=== PATIENT | male | born 1940 | race Caucasian/White ===

== ENCOUNTER 2020-02-12 10:07 | Observation (INO) ==
[~2020-02-12 10:07] MED LIST: *HR* Propofol 200 MG/20 ML VIAL IVP ONE; Lidocaine -MPF 2% 2 ML VIAL ONE
[2020-02-12] MEDS ORDERED: Ringers Solution, Lactated 1,000 ML IVC SCH (10:45)
[2020-02-12] MEDS ORDERED: 0.9 % Sodium Chloride 1,000 ML IVC SCH (13:12)
[2020-02-12] MEDS ORDERED: Ondansetron 4 MG/2 ML VIAL IVP PRN (13:12)
[2020-02-12] MEDS ORDERED: *HR* Metoprolol 5 MG/5 ML VIAL IVP PRN (13:12)
[2020-02-12] MEDS ORDERED: Naloxone 0.4 MG/ML INJ IVP PRN (13:12)
[2020-02-12 13:49] LABS: INR 1.1
[2020-02-13] MEDS ORDERED: Ondansetron 4 MG/2 ML VIAL ONE (08:40)
[2020-02-13] MEDS ORDERED: *HR* Propofol 200 MG/20 ML VIAL IVP ONE (08:40)
[2020-02-13] MEDS ORDERED: Bupivacaine/EPI 1:200k 0.5%PF 10 ML VIAL ONE (08:40)
[2020-02-13] MEDS ORDERED: Lidocaine 1% 20 ML MDV ONE (08:40)
[2020-02-13] MEDS ORDERED: Dexamethasone 4 MG/ML VIAL ONE (08:40)
[2020-02-13] MEDS ORDERED: *HR* Heparin 5,000 UNIT/ML VIAL ONE (08:41)
[2020-02-13] MEDS ORDERED: *HR* FentaNYL (PF) 100 MCG/2 ML VIAL ONE (08:42)
[2020-02-13] MEDS ORDERED: Lidocaine HCL 4 ML Topical Solution (Laryng-O-Jet Kit Sterile Pak) TP ONE (08:43)
[2020-02-13] MEDS ORDERED: FLUoxetine 20 MG CAPSULE PO SCH (09:00)
[2020-02-13] MEDS ORDERED: *HR* HYDROmorphone PF 0.5 MG/0.5 ML SYRINGE IVP PRN ×2 (09:39→10:28)
[2020-02-13] MEDS ORDERED: Neostigmine Methylsulfate 3 MG/3 ML SYRINGE ONE (09:41)
[2020-02-13] MEDS ORDERED: *HR* PHENYLEPHRINE 1,000 MCG/10 ML SYRINGE IVP ONE (09:41)
[2020-02-13] MEDS ORDERED: Naloxone 0.4 MG/ML INJ IVP PRN (10:28)
[2020-02-13] MEDS ORDERED: 0.9 % Sodium Chloride 1,000 ML IVC SCH (10:28)
[2020-02-13] MEDS ORDERED: Ondansetron 4 MG/2 ML VIAL IVP PRN (10:28)
[2020-02-13] MEDS ORDERED: *HR* Metoprolol 5 MG/5 ML VIAL IVP PRN (10:28)
[2020-02-13 14:31] VITALS: BP 118/70
[2020-02-14] MEDS ORDERED: FLUoxetine 20 MG CAPSULE PO SCH (09:00)
== END 2020-02-13 14:39 | disposition home or self-care (01) ==
LOC: 3ANU 10:07 → SAMDAY 10:07 → 3ANU 12:48
PROVIDERS: ADMIT Surgery; ATTEND Surgery
PROC: ENDOEBX (2020-02-12 12:30)

== ENCOUNTER 2020-02-17 14:55 | Inpatient (IN) ==
[2020-02-17] MEDS ORDERED: Isovue-370 500 ML BOTTLE IVP ONE (15:12)
[2020-02-17] MEDS ORDERED: Morphine Sulfate 2 MG/ML SYRINGE IVP ONE (15:13)
[2020-02-17 16:16] LABS: Basophils # 0.1 K/mcL (0.0-0.2); Basophils % 0.6 %; Eosinophils # 0.4 K/mcL (0.0-0.6); Eosinophils % 2.6 %; Hematocrit 46.8 % (37.5-50.1); Hemoglobin 15.1 g/dL (12.9-16.9); Immature Granulocytes % 1.5 % (0-4); Lymphocytes # 0.7 K/mcL (0.6-4.6); Lymphocytes % 4.8 %; Mean Corpuscular HGB Conc 32.3 g/dL (31.6-35.5); Mean Corpuscular Hemoglobin 27.4 pg (28.0-33.3); Mean Corpuscular Volume 84.8 fL (83.0-100.0); Mean Platelet Volume 8.7 fL (9.4-12.4); Monocytes # 1.6 K/mcL (0.0-1.3); Neutrophils # 10.7 K/mcL (1.6-8.9); Platelet Count 139 K/mcL (140-400); Red Blood Count 5.52 M/mcL (4.19-5.50); Red Cell Distribution Width 13.9 % (11.5-14.5); Segmented Neutrophils % 78.5 %; White Blood Count 13.6 K/mcL (4.3-11.1)
[2020-02-17 16:33] LABS: Alanine Aminotransferase 9 Units/L (7-52); Albumin 3.2 g/dL (3.5-5.7); Albumin/Globulin Ratio 1.4 (1.1-2.2); Alkaline Phosphatase 140 Units/L (34-104); Aspartate Amino Transferase 16 Units/L (13-39); BUN/Creatinine Ratio 37 (6-26); Bilirubin,Total 1.1 mg/dL (0.3-1.0); Blood Urea Nitrogen 26 mg/dL (8-23); Calcium 9.5 mg/dL (8.6-10.3); Carbon Dioxide 23 mEq/L (23-29); Chloride 99 mEq/L (98-107); Globulin 2.3 g/dL (2.4-3.5); Glucose 98 mg/dL (70-105); Osmolality,Calculated 285 (280-300); Potassium 4.2 mEq/L (3.5-5.1); Sodium 135 mEq/L (136-145); Total Protein 5.5 g/dL (6.4-8.9); eGFR For African Americans > 60 (> 60); eGFR For Non-African Americans > 60 (> 60)
[2020-02-17] MEDS ORDERED: Azithromycin 250 MG TABLET PO ONE (17:47)
[2020-02-17] MEDS ORDERED: Piperacillin/Tazobactam 3.375 GM in 0.9 % Sodium Chloride Mini Bag 100 ML IVPB ONE (17:47)
[2020-02-17] MEDS ORDERED: Piperacillin/Tazobactam 3.375 GM in Water for inj. (sterile) 20 ML IVP ONE (18:22)
[2020-02-17] MEDS ORDERED: *HR* Promethazine 25 MG/ML VIAL IVP PRN (18:40)
[2020-02-17] MEDS ORDERED: *HR* HYDROcodone/Acet 5/325 mg TABLET PO PRN (18:40)
[2020-02-17] MEDS ORDERED: Naloxone 0.4 MG/ML INJ IVP PRN ×2 (18:40→21:40)
[2020-02-17] MEDS ORDERED: Aminoglycoside Consult 1 EACH MC ONE (18:41)
[2020-02-17] MEDS: *HR* Heparin 5,000 UNIT/ML VIAL SQ SCH (21:06)
[2020-02-17] MEDS ORDERED: Acetaminophen IV 1,000 MG/100 ML INFUS..BTL IVPB ONE (22:08)
[2020-02-17] MEDS: 0.9 % Sodium Chloride 1,000 ML IVC SCH ×2 (22:08→23:09)
[2020-02-18] MEDS ORDERED: Piperacillin/Tazobactam 3.375 GM in 0.9 % Sodium Chloride Mini Bag 100 ML IVPB SCH
[2020-02-18] MEDS: *HR* Heparin 5,000 UNIT/ML VIAL SQ SCH ×2 (04:29→21:02)
[2020-02-18 04:36] LABS: Basophils # 0.1 K/mcL (0.0-0.2); Basophils % 0.5 %; Eosinophils # 0.3 K/mcL (0.0-0.6); Eosinophils % 2.2 %; Hematocrit 43.9 % (37.5-50.1); Hemoglobin 13.8 g/dL (12.9-16.9); Immature Granulocytes % 1.4 % (0-4); Lymphocytes # 0.7 K/mcL (0.6-4.6); Lymphocytes % 5.3 %; Mean Corpuscular HGB Conc 31.4 g/dL (31.6-35.5); Mean Corpuscular Hemoglobin 27.3 pg (28.0-33.3); Mean Corpuscular Volume 86.9 fL (83.0-100.0); Mean Platelet Volume 8.6 fL (9.4-12.4); Monocytes # 1.6 K/mcL (0.0-1.3); Monocytes % 12.6 %; Neutrophils # 9.9 K/mcL (1.6-8.9); Platelet Count 123 K/mcL (140-400); Red Blood Count 5.05 M/mcL (4.19-5.50); Red Cell Distribution Width 14.1 % (11.5-14.5); White Blood Count 12.7 K/mcL (4.3-11.1)
[2020-02-18 04:41] LABS: INR 1.2; Prothrombin Time 13.7 Seconds (9.4-12.1)
[2020-02-18 05:01] LABS: Alanine Aminotransferase 7 Units/L (7-52); Albumin 2.8 g/dL (3.5-5.7); Albumin/Globulin Ratio 1.3 (1.1-2.2); Alkaline Phosphatase 129 Units/L (34-104); Aspartate Amino Transferase 14 Units/L (13-39); BUN/Creatinine Ratio 32 (6-26); Bilirubin,Total 0.9 mg/dL (0.3-1.0); Blood Urea Nitrogen 25 mg/dL (8-23); Calcium 8.6 mg/dL (8.6-10.3); Carbon Dioxide 20 mEq/L (23-29); Chloride 104 mEq/L (98-107); Gamma Glutamyl Transpeptidase 158 Units/L (7-64); Globulin 2.1 g/dL (2.4-3.5); Glucose 85 mg/dL (70-105); Magnesium 1.8 mg/dL (1.6-2.6); Osmolality,Calculated 286 (280-300); Phosphorous 3.5 mg/dL (2.7-4.5); Potassium 4.5 mEq/L (3.5-5.1); Sodium 136 mEq/L (136-145); Total Protein 4.9 g/dL (6.4-8.9); Troponin I < 0.03 ng/mL (< 0.04); eGFR For African Americans > 60 (> 60); eGFR For Non-African Americans > 60 (> 60)
[2020-02-18] MEDS: Aspirin Enteric Coated 81 MG Tablet PO SCH (08:51)
[2020-02-18] MEDS: lisinopriL 20 MG TABLET PO SCH (08:51)
[2020-02-18] MEDS ORDERED: levoFLOXacin 750 MG/150 ML 750 MG/150 ML BAG IVPB SCH (09:00)
[2020-02-18] MEDS ORDERED: *HR* FentaNYL (PF) 100 MCG/2 ML VIAL IVP ONE (09:48)
[2020-02-18] MEDS: *HR* HYDROcodone/Acet 10/325 mg TABLET PO PRN ×3 (10:02→22:15)
[2020-02-18] MEDS ORDERED: Acetaminophen 325 MG TABLET PO PRN (12:54)
[2020-02-18] MEDS ORDERED: Ketorolac 30 MG/ML VIAL IVP ONE (13:01)
[2020-02-18] MEDS ORDERED: *HR* OxyCODONE Immed Rel 5 MG TABLET PO PRN (22:16)
[2020-02-18] MEDS ORDERED: Morphine Sulfate 2 MG/ML SYRINGE IVP ONE (22:17)
[2020-02-19] MEDS: *HR* Enoxaparin 40 MG/0.4 ML SYRINGE SQ SCH (05:30)
[2020-02-19 06:40] LABS: Basophils # 0.1 K/mcL (0.0-0.2); Basophils % 0.6 %; Eosinophils # 0.5 K/mcL (0.0-0.6); Eosinophils % 4.3 %; Hematocrit 42.1 % (37.5-50.1); Hemoglobin 13.4 g/dL (12.9-16.9); Immature Granulocytes % 1.4 % (0-4); Lymphocytes # 0.7 K/mcL (0.6-4.6); Mean Corpuscular HGB Conc 31.8 g/dL (31.6-35.5); Mean Corpuscular Hemoglobin 27.7 pg (28.0-33.3); Mean Corpuscular Volume 87.2 fL (83.0-100.0); Mean Platelet Volume 8.7 fL (9.4-12.4); Monocytes # 1.6 K/mcL (0.0-1.3); Monocytes % 14.4 %; Platelet Count 127 K/mcL (140-400); Red Blood Count 4.83 M/mcL (4.19-5.50); Red Cell Distribution Width 14.1 % (11.5-14.5); Segmented Neutrophils % 73.3 %; White Blood Count 10.9 K/mcL (4.3-11.1)
[2020-02-19 06:56] LABS: BUN/Creatinine Ratio 35 (6-26); Blood Urea Nitrogen 28 mg/dL (8-23); Calcium 9.2 mg/dL (8.6-10.3); Carbon Dioxide 25 mEq/L (23-29); Chloride 102 mEq/L (98-107); Glucose 110 mg/dL (70-105); Osmolality,Calculated 288 (280-300); Potassium 4.1 mEq/L (3.5-5.1); Sodium 136 mEq/L (136-145); eGFR For African Americans > 60 (> 60); eGFR For Non-African Americans > 60 (> 60)
[2020-02-19 06:57] LABS: Bilirubin,Direct 0.3 mg/dL (0.0-0.2); Bilirubin,Indirect 0.3 mg/dL (0.0-1.0); Bilirubin,Total 0.6 mg/dL (0.3-1.0)
[2020-02-19] MEDS: Aspirin Enteric Coated 81 MG Tablet PO SCH (07:47)
[2020-02-19] MEDS: *HR* HYDROcodone/Acet 10/325 mg TABLET PO PRN (07:48)
[2020-02-19] MEDS: lisinopriL 20 MG TABLET PO SCH (07:48)
[2020-02-19] MEDS ORDERED: methylPREDNISolone 125 MG/2 ML VIAL IVP ONE (08:19)
[2020-02-19] MEDS: Gabapentin 100 MG CAPSULE PO SCH ×3 (10:09→20:10)
[2020-02-19] MEDS ORDERED: *HR* HYDROcodone/Acet 10/325 mg TABLET PO PRN (14:13)
[2020-02-19] MEDS ORDERED: *HR* OxyCODONE Immed Rel 5 MG TABLET PO PRN ×2 (14:14→14:50)
[2020-02-19] MEDS ORDERED: dexAMETHasone 4 MG TABLET PO SCH (14:15)
[2020-02-19] MEDS: polyethylene glycoL 3350 17 GM POWD.PACK PO SCH (15:00)
[2020-02-19] MEDS: Sennosides/Docusate Sodium TABLET PO SCH ×2 (15:00→20:10)
[2020-02-19] MEDS: dexAMETHasone 4 MG TABLET PO SCH ×2 (15:20→20:10)
[2020-02-19] MEDS: *HR* OxyCODONE ER (12 HR) 10 MG TABLET PO SCH (17:40)
[2020-02-20] MEDS: *HR* OxyCODONE Immed Rel 5 MG TABLET PO PRN ×2 (01:59→10:52)
[2020-02-20] MEDS: dexAMETHasone 4 MG TABLET PO SCH ×4 (03:18→21:26)
[2020-02-20] MEDS: *HR* Enoxaparin 40 MG/0.4 ML SYRINGE SQ SCH (05:38)
[2020-02-20] MEDS: *HR* OxyCODONE ER (12 HR) 10 MG TABLET PO SCH ×2 (05:38→18:02)
[2020-02-20] MEDS: Aspirin Enteric Coated 81 MG Tablet PO SCH (07:47)
[2020-02-20] MEDS: polyethylene glycoL 3350 17 GM POWD.PACK PO SCH (07:47)
[2020-02-20] MEDS: Sennosides/Docusate Sodium TABLET PO SCH ×2 (07:48→21:26)
[2020-02-20] MEDS: lisinopriL 20 MG TABLET PO SCH (07:48)
[2020-02-20] MEDS: Gabapentin 100 MG CAPSULE PO SCH ×3 (07:48→21:26)
[2020-02-20] MEDS: Celecoxib 200 MG CAPSULE PO SCH (12:38)
[2020-02-20] MEDS: Metoprolol XL (24 HR) Succ 25 MG TAB.ER.24H PO SCH (12:38)
[2020-02-21] MEDS: dexAMETHasone 4 MG TABLET PO SCH ×4 (03:44→23:43)
[2020-02-21 08:10] LABS: Basophils % 0.1 %; Hematocrit 40.2 % (37.5-50.1); Hemoglobin 12.5 g/dL (12.9-16.9); Immature Granulocytes % 2.2 % (0-4); Lymphocytes # 0.3 K/mcL (0.6-4.6); Lymphocytes % 2.2 %; Mean Corpuscular HGB Conc 31.1 g/dL (31.6-35.5); Mean Corpuscular Hemoglobin 26.9 pg (28.0-33.3); Mean Corpuscular Volume 86.6 fL (83.0-100.0); Mean Platelet Volume 8.9 fL (9.4-12.4); Monocytes # 1.3 K/mcL (0.0-1.3); Monocytes % 9.4 %; Platelet Count 152 K/mcL (140-400); Red Blood Count 4.64 M/mcL (4.19-5.50); Red Cell Distribution Width 14.1 % (11.5-14.5); Segmented Neutrophils % 86.1 %
[2020-02-21] MEDS: amLODIPine 5 MG TABLET PO SCH (08:10)
[2020-02-21] MEDS: Aspirin Enteric Coated 81 MG Tablet PO SCH (08:10)
[2020-02-21] MEDS: *HR* OxyCODONE ER (12 HR) 10 MG TABLET PO SCH ×2 (08:10→16:58)
[2020-02-21] MEDS: Sennosides/Docusate Sodium TABLET PO SCH ×2 (08:10→21:00)
[2020-02-21] MEDS: Gabapentin 100 MG CAPSULE PO SCH ×3 (08:10→21:00)
[2020-02-21] MEDS: *HR* Enoxaparin 40 MG/0.4 ML SYRINGE SQ SCH (08:11)
[2020-02-21] MEDS: Celecoxib 200 MG CAPSULE PO SCH (08:11)
[2020-02-21] MEDS: polyethylene glycoL 3350 17 GM POWD.PACK PO SCH (08:11)
[2020-02-21] MEDS: Metoprolol XL (24 HR) Succ 25 MG TAB.ER.24H PO SCH (08:11)
[2020-02-21 08:24] LABS: BUN/Creatinine Ratio 41 (6-26); Blood Urea Nitrogen 46 mg/dL (8-23); Calcium 9.5 mg/dL (8.6-10.3); Carbon Dioxide 27 mEq/L (23-29); Chloride 98 mEq/L (98-107); Glucose 135 mg/dL (70-105); Magnesium 2.2 mg/dL (1.6-2.6); Osmolality,Calculated 294 (280-300); Potassium 4.6 mEq/L (3.5-5.1); Sodium 135 mEq/L (136-145); eGFR For African Americans > 60 (> 60); eGFR For Non-African Americans > 60 (> 60)
[2020-02-22 03:00] LABS: Basophils % 0.2 %; Hemoglobin 13.3 g/dL (12.9-16.9); Immature Granulocytes % 2.3 % (0-4); Lymphocytes # 0.4 K/mcL (0.6-4.6); Lymphocytes % 2.8 %; Mean Corpuscular HGB Conc 32.4 g/dL (31.6-35.5); Mean Corpuscular Hemoglobin 27.8 pg (28.0-33.3); Mean Corpuscular Volume 85.6 fL (83.0-100.0); Mean Platelet Volume 8.5 fL (9.4-12.4); Monocytes % 7.4 %; Neutrophils # 11.2 K/mcL (1.6-8.9); Platelet Count 142 K/mcL (140-400); Red Blood Count 4.79 M/mcL (4.19-5.50); Red Cell Distribution Width 13.9 % (11.5-14.5); Segmented Neutrophils % 87.3 %; White Blood Count 12.8 K/mcL (4.3-11.1)
[2020-02-22 03:11] LABS: BUN/Creatinine Ratio 52 (6-26); Blood Urea Nitrogen 50 mg/dL (8-23); Calcium 9.6 mg/dL (8.6-10.3); Carbon Dioxide 26 mEq/L (23-29); Chloride 99 mEq/L (98-107); Glucose 163 mg/dL (70-105); Magnesium 2.2 mg/dL (1.6-2.6); Osmolality,Calculated 299 (280-300); Potassium 4.6 mEq/L (3.5-5.1); Sodium 136 mEq/L (136-145); eGFR For African Americans > 60 (> 60); eGFR For Non-African Americans > 60 (> 60)
[2020-02-22] MEDS: *HR* OxyCODONE ER (12 HR) 10 MG TABLET PO SCH ×2 (06:10→17:36)
[2020-02-22] MEDS: dexAMETHasone 4 MG TABLET PO SCH ×3 (06:10→17:36)
[2020-02-22] MEDS: *HR* Enoxaparin 40 MG/0.4 ML SYRINGE SQ SCH (06:11)
[2020-02-22] MEDS: Aspirin Enteric Coated 81 MG Tablet PO SCH (09:33)
[2020-02-22] MEDS: Metoprolol XL (24 HR) Succ 25 MG TAB.ER.24H PO SCH (09:33)
[2020-02-22] MEDS: amLODIPine 5 MG TABLET PO SCH (09:33)
[2020-02-22] MEDS: polyethylene glycoL 3350 17 GM POWD.PACK PO SCH (09:33)
[2020-02-22] MEDS: Sennosides/Docusate Sodium TABLET PO SCH ×2 (09:33→19:53)
[2020-02-22] MEDS: Celecoxib 200 MG CAPSULE PO SCH (09:33)
[2020-02-22] MEDS: Gabapentin 100 MG CAPSULE PO SCH ×3 (09:33→19:53)
[2020-02-23] MEDS: *HR* OxyCODONE ER (12 HR) 10 MG TABLET PO SCH ×2 (05:00→17:15)
[2020-02-23] MEDS: *HR* Enoxaparin 40 MG/0.4 ML SYRINGE SQ SCH (05:00)
[2020-02-23] MEDS: dexAMETHasone 4 MG TABLET PO SCH ×2 (05:00→17:15)
[2020-02-23 05:19] LABS: Basophils % 0.3 %; Eosinophils # 0.1 K/mcL (0.0-0.6); Eosinophils % 0.3 %; Hematocrit 41.3 % (37.5-50.1); Hemoglobin 13.4 g/dL (12.9-16.9); Immature Granulocytes % 2.4 % (0-4); Lymphocytes # 0.4 K/mcL (0.6-4.6); Lymphocytes % 2.7 %; Mean Corpuscular HGB Conc 32.4 g/dL (31.6-35.5); Mean Corpuscular Hemoglobin 27.9 pg (28.0-33.3); Mean Corpuscular Volume 85.9 fL (83.0-100.0); Mean Platelet Volume 8.8 fL (9.4-12.4); Monocytes # 1.3 K/mcL (0.0-1.3); Monocytes % 8.6 %; Neutrophils # 12.9 K/mcL (1.6-8.9); Platelet Count 135 K/mcL (140-400); Red Blood Count 4.81 M/mcL (4.19-5.50); Red Cell Distribution Width 13.9 % (11.5-14.5); Segmented Neutrophils % 85.7 %; White Blood Count 15.1 K/mcL (4.3-11.1)
[2020-02-23 05:38] LABS: BUN/Creatinine Ratio 58 (6-26); Blood Urea Nitrogen 53 mg/dL (8-23); Calcium 9.4 mg/dL (8.6-10.3); Carbon Dioxide 29 mEq/L (23-29); Chloride 97 mEq/L (98-107); Glucose 155 mg/dL (70-105); Magnesium 2.2 mg/dL (1.6-2.6); Osmolality,Calculated 298 (280-300); Sodium 135 mEq/L (136-145); eGFR For African Americans > 60 (> 60); eGFR For Non-African Americans > 60 (> 60)
[2020-02-23] MEDS: polyethylene glycoL 3350 17 GM POWD.PACK PO SCH (09:07)
[2020-02-23] MEDS: Aspirin Enteric Coated 81 MG Tablet PO SCH (09:07)
[2020-02-23] MEDS: Sennosides/Docusate Sodium TABLET PO SCH ×2 (09:07→20:50)
[2020-02-23] MEDS: Celecoxib 200 MG CAPSULE PO SCH (09:07)
[2020-02-23] MEDS: amLODIPine 5 MG TABLET PO SCH (09:08)
[2020-02-23] MEDS: Gabapentin 100 MG CAPSULE PO SCH ×3 (09:08→20:49)
[2020-02-23] MEDS: Metoprolol XL (24 HR) Succ 25 MG TAB.ER.24H PO SCH (09:09)
[2020-02-23 09:28] LABS: AFP Tumor Marker Non-Pregnant 2 ng/mL (0-9); Cancer Antigen-GI (CA 19-9) 20 U/mL (0-37)
[2020-02-23] MEDS: *HR* OxyCODONE Immed Rel 5 MG TABLET PO PRN (20:50)
[2020-02-24 01:26] LABS: Basophils % 0.2 %; Hematocrit 41.7 % (37.5-50.1); Hemoglobin 13.5 g/dL (12.9-16.9); Lymphocytes # 0.4 K/mcL (0.6-4.6); Lymphocytes % 2.9 %; Mean Corpuscular HGB Conc 32.4 g/dL (31.6-35.5); Mean Corpuscular Hemoglobin 27.7 pg (28.0-33.3); Mean Corpuscular Volume 85.6 fL (83.0-100.0); Mean Platelet Volume 8.7 fL (9.4-12.4); Monocytes # 1.3 K/mcL (0.0-1.3); Monocytes % 8.5 %; Neutrophils # 12.7 K/mcL (1.6-8.9); Platelet Count 124 K/mcL (140-400); Red Blood Count 4.87 M/mcL (4.19-5.50); Red Cell Distribution Width 14.1 % (11.5-14.5); Segmented Neutrophils % 85.4 %; White Blood Count 14.9 K/mcL (4.3-11.1)
[2020-02-24 01:46] LABS: BUN/Creatinine Ratio 60 (6-26); Blood Urea Nitrogen 58 mg/dL (8-23); Calcium 9.2 mg/dL (8.6-10.3); Carbon Dioxide 25 mEq/L (23-29); Chloride 99 mEq/L (98-107); Glucose 132 mg/dL (70-105); Magnesium 2.2 mg/dL (1.6-2.6); Osmolality,Calculated 296 (280-300); Potassium 4.9 mEq/L (3.5-5.1); Sodium 134 mEq/L (136-145); eGFR For African Americans > 60 (> 60); eGFR For Non-African Americans > 60 (> 60)
[2020-02-24] MEDS: *HR* Enoxaparin 40 MG/0.4 ML SYRINGE SQ SCH (06:07)
[2020-02-24] MEDS: *HR* OxyCODONE ER (12 HR) 10 MG TABLET PO SCH (06:07)
[2020-02-24] MEDS: dexAMETHasone 4 MG TABLET PO SCH (06:07)
[2020-02-24 07:15] VITALS: BP 106/66
[2020-02-24] MEDS: amLODIPine 5 MG TABLET PO SCH (07:55)
[2020-02-24] MEDS: Sennosides/Docusate Sodium TABLET PO SCH (07:55)
[2020-02-24] MEDS: Aspirin Enteric Coated 81 MG Tablet PO SCH (07:55)
[2020-02-24] MEDS: Metoprolol XL (24 HR) Succ 25 MG TAB.ER.24H PO SCH (07:55)
[2020-02-24] MEDS: polyethylene glycoL 3350 17 GM POWD.PACK PO SCH (07:55)
[2020-02-24] MEDS: Gabapentin 100 MG CAPSULE PO SCH (07:55)
[2020-02-24] MEDS: Celecoxib 200 MG CAPSULE PO SCH (07:55)
[2020-02-24] MEDS: *HR* OxyCODONE Immed Rel 5 MG TABLET PO PRN (13:33)
== END 2020-02-24 13:36 | DRG 948 ==
LOC: EMEROOARM 14:55 → 2NENU 14:55 → 3ANU 02-18 20:26 → SUATTDRO 02-19 12:41
PROVIDERS: ADMIT Internal Medicine; ATTEND Pharmacist